=== PATIENT | male | born 1955 ===

== ENCOUNTER 2019-10-24 13:03 | Outpatient (CLI) | payer OTHER ==
[~2019-10-24 13:03] MED LIST: ASPIRIN1 GM MC; PERCOCET 10/3251 TAB PO
== END 2019-10-24 13:12 | disposition home or self-care (01) ==
LOC: SONOGRAMA 13:03
PROVIDERS: ATTEND Internal Medicine Endocrinology, Diabetes & Metabolism
DX: E04.1 Nontoxic single thyroid nodule (principal)

== ENCOUNTER 2021-08-16 09:00 | Outpatient (CLI) | payer OTHER | END 2021-08-16 09:15 | disposition home or self-care (01) | LOC: PPH VACUNA 09:00 | PROVIDERS: ATTEND Emergency Medicine Pediatric Emergency Medicine | DX: Z23 Encounter for immunization (principal) ==

== ENCOUNTER 2021-11-09 09:51 | Outpatient (CLI) | payer OTHER | END 2021-11-09 09:54 | disposition home or self-care (01) | LOC: SONOGRAMA 09:51 | PROVIDERS: ATTEND Internal Medicine Endocrinology, Diabetes & Metabolism | DX: E04.1 Nontoxic single thyroid nodule (principal) ==

== ENCOUNTER → 2022-05-03 | Outpatient (CLI) | payer OTHER | END | disposition home or self-care (01) | LOC: TOM 13:04 | PROVIDERS: ATTEND Urology | DX: R31.29 Other microscopic hematuria (principal) ==